=== PATIENT | male | born 1940 | race Caucasian/White ===

== ENCOUNTER → 2020-02-28 | Outpatient (CLI) | payer OTHER ==
[~2020-02-28] MED LIST: CENTRUM SILVER1 EAC7 PO; CITRUCEL500 MG PO; CRESTOR5 MG PO; FISH OIL 1,0001 EAC9 PO; FLOMAX0.4 MG PO; LEVOXYL137 MCG PO; METOPROLOL TART25 MG PO; NASACORT10.8 ML NASAL; NORVASC5 MG PO; TRAZODONE HCL100 MG PO; VALSARTAN-HCTZ1 EAC3 PO; XARELTO20 MG PO; ZYRTEC10 M5 PO
== END ==
LOC: LAB 11:46
PROVIDERS: ATTEND Orthopaedic Surgery
DX: Z01.812 Encounter for preprocedural laboratory examination (principal); Z20.822 Contact with and (suspected) exposure to COVID-19

== ENCOUNTER 2020-03-05 09:04 | Day surgery (SDC) | payer OTHER ==
[2020-02-28 11:05] LABS: URINE BILIRUBIN NEGATIVE (Negative); URINE BLOOD NEGATIVE (Negative); URINE CLARITY CLEAR; URINE COLOR YELLOW; URINE GLUCOSE-RANDOM* NEGATIVE (Negative); URINE KETONES NEGATIVE (Negative); URINE LEUKOCYTES-REFLEX NEGATIVE (Negative); URINE NITRITE-REFLEX NEGATIVE (Negative); URINE PROTEIN (DIPSTICK) NEGATIVE (Negative); URINE UROBILINOGEN 0.2 E.U./dl (0.2-1.0)
[2020-02-28 11:17] LABS: HEMATOCRIT 47.2 % (42.0-52.0); HEMOGLOBIN 16.2 gm/dL (14.0-18.0); MCH 31.3 pg (26.0-34.0); MCHC 34.3 g/dL (28.0-37.0); MCV 91.3 fL (80.0-100.0); RBC 5.17 mil/uL (4.50-6.00); RDW 13.2 % (10.5-14.5); WBC 4.6 thou/uL (4.0-11.0)
[2020-02-28 11:22] LABS: ALBUMIN 3.8 g/dL (3.4-5.0); CALCIUM 8.8 mg/dL (8.5-10.1); CREATININE 1.4 mg/dL (0.7-1.3); INR 1.1
[~2020-03-05] VITALS: Ht 180.3 cm; Wt 119.7 kg
[2020-03-05 11:10] VITALS: BP 130/86
[2020-03-05] MEDS ORDERED: KETOCONAZOLE15 GM TOP (15:55)
[2020-03-05 17:03] VITALS: BP 112/58
--- NOTE | 2020-03-05 18:30 | NUR ---
PT RECEIVED FROM THE REC RM AT 1450 ALERT AND IN NO PAIN. RT KNEE DSNG D&I W/ TEDS/SCDS AND POLAR VERONICA IN PLACE. GOOD CIRC/SENS TO TOES. EATING AND DRINKING WELL. IV FLUIDS INFUSING. VOIDED PER URINAL. NO THERAPY TODAY BUT WILL START IN AM.
[2020-03-05 20:16] VITALS: BP 127/52
[2020-03-06] VITALS (7 sets, daily range): BP systolic 109–125; BP diastolic 55–79
--- NOTE | 2020-03-06 04:25 | NUR ---
RECIEVED CARE OF THIS PATIENT AT 1900. PATIENT ALERT AND ORIENTED X4. ANGIE DRESSING ON R KNEE D/I. C/O MILD PAIN, SCHEDULED PAIN MED GIVEN. PT STOOD UP AT BEDSIDE FOR 40 MIN THEN WALKED TO BATHROOM WITH ASSIST. TEDS AND SCD'S IN PLACE. SLEPT LITTLE THIS SHIFT.
[2020-03-06 05:51] LABS: HEMATOCRIT 40.8 % (42.0-52.0); HEMOGLOBIN 13.5 gm/dL (14.0-18.0); MCH 30.7 pg (26.0-34.0); MCHC 33.2 g/dL (28.0-37.0); MCV 92.4 fL (80.0-100.0); RBC 4.42 mil/uL (4.50-6.00); RDW 13.1 % (10.5-14.5); WBC 11.4 thou/uL (4.0-11.0)
--- NOTE | 2020-03-06 10:08 | NUR ---
ASSESSMENT: CM REVIEWED CHART. PT IS S/P TOTAL KNEE REPLACEMENT. PT REPORTS LIVING IN A HOUSE WITH HIS . PT HAS ABOUT 3 STEPS TO ENTER THE HOME AND NO STEPS HE HAS TO USE INSIDE. PT REPORTS THAT HE IS NORMALLY INDEPENDENT WITH ADLS AND AMBULATION. PT WORKED WITH THERAPY AND IS NEEDING A WALKER FOR HOME. PT REPORTS NO PREFERENCE OF [employer]. CM NOTIFIED [employer] AND THEY ARE BRINGING A WALKER TO PATIENTS ROOM. PT REPORTS HAVING A CPAP MACHINE AT HOME. PT DENIES HAVING ANY NEEDS FROM CM. PLANS ARE TO DISCHARGE HOME TODAY.
--- NOTE | 2020-03-06 10:53 | NUR ---
DISCHARGE PAPERS REVIEWED SIGNED AND COPY IN CHART. IV ACSESS DCD, ALL BELONGINGS PACKED AND SENT WITH PATIENT. TO TAKE PATIENT HOME. RX'S WAS GIVEN PRE OP APPT AND IS FILLING.NO PAIN OR RESP DISTRESS. PATIENT EARLIER WALKED UNIT HALLS AND CLIMBED STAIRS. OK PER PT TO DISCHARGE.
--- NOTE | 2020-03-06 12:48 | O ---
[facility] [place] [address] OPERATIVE REPORT Name: CON CROWE Room #: DEP [facility] John#: [id number] Admission: 03/05/20 Attend Phys: Ralph Madsen MD Discharge: 03/06/20 Date of : 42 Report #: [id number] THIS REPORT FOR: cc: Owen Ansari MD, Steven A. MD Abraham,Ralph Hawthorne MD ~ DATE OF SERVICE: 03/05/2020 PREOPERATIVE DIAGNOSIS: Right knee osteoarthritis. POSTOPERATIVE DIAGNOSIS: Right knee osteoarthritis. PROCEDURE: Right total knee arthroplasty using Navio robotic conventions assistant. SURGEON: Ralph Madsen MD UTILITY REPAIRER: Marni Oliveira PA-C INDICATIONS FOR UTILITY REPAIRER: Throughout the case, extensive retraction and manipulation of the knee was required. This was afforded by my conventions assistant. ANESTHESIA: LMA with an adductor canal block. IMPLANTS: Size 7 Journey II BCS cobalt chrome femur, size 7 tibia, size 9 polyethylene and size 38 patella. TOURNIQUET TIME: 53 minutes. ESTIMATED BLOOD LOSS: 25 mL. COMPLICATIONS: None. SPECIMENS: None. CONDITION UPON LEAVING THE OPERATING ROOM: Stable. INDICATIONS FOR PROCEDURE: The patient is a 80-year-old gentleman with right knee osteoarthritis. He had failed conservative measures for this and after discussion with him, he elected for right total knee arthroplasty. DESCRIPTION OF PROCEDURE: Risks, benefits, alternatives, and complications were discussed in detail with the patient including but not limited to risk of anesthesia, risk of damage to nerves, arteries, blood vessels, risk for infection, bleeding, risk for continued knee pain, need for reoperation. Informed consent was obtained from the patient. The right knee was [facility] [address] [place] [address] OPERATIVE REPORT Name: CON CROWE Room #: DEP [facility] John#: [id number] Admission: 03/05/20 Attend Phys: Ralph Madsen MD Discharge: 03/06/20 Date of : 42 Report #: [id number] appropriately marked in the preoperative holding area. IV Ancef was given for preoperative antibiotics. He was brought to the operating room and placed in supine position on operating room table. LMA anesthesia was induced without complication. Tourniquet was placed on the right thigh. Right lower extremity was prepped and draped in normal sterile fashion. Timeout was performed properly identifying the patient and procedure as well as the instrumentation and implants. All in the operating room were in agreement. Right lower extremity was exsanguinated, tourniquet was inflated. Tourniquet time was 53 minutes. Standard midline approach to knee was made with 10 blade through the skin. Dissection was taken down sharply to the fascia and deep flaps were developed medially and laterally. Fresh 10 blade was used to make a medial parapatellar arthrotomy and the knee was inspected. There was moderate tricompartmental osteoarthritis. ACL and PCL were removed sharply. Reference pins were placed in the femur and the tibia. The knee was then digitally mapped using the [employer] robotic system. Intraoperative plan was made and we sized the size 7 femur with a size 7 tibia and a 10 spacer. After acceptance of the intraoperative plan, the distal femoral cut was made with Navio bur. Distal femoral cutting block was pinned in place and chamfer cuts were made. Attention was then turned to the tibia. Remainder of the menisci removed with Bovie cautery. Tibial resection guide was pinned in place using the Navio for placement and tibial resection was made. Flexion and extension gaps were then checked and found to have good balance in flexion and extension both medially and laterally. The tibia was sized, found to be a size 7. A size 7 tibial trial was placed, pinned and punched. A size 7 femoral trial was placed and box cut was made. This was then trialed with a size 9 polyethylene and size 9 polyethylene demonstrated 1-2 mm of laxity medially and laterally throughout range of motion of the knee. After this, 9 mm of bone was resected from the posterior surface of the patella and a size 38 patellar trial button was placed. Knee was taken through range of motion, found to be stable, found to have good patellar tracking. Trial components were removed. Bony ends were thoroughly irrigated with normal saline. A final size 7 tibia, size 7 Journey II BCS cobalt chrome femur and a size 38 patella were cemented in place using standard cementation techniques. While the cement cured, a periarticular injection consisting of morphine, ropivacaine, epinephrine, Toradol was placed around the knee joint capsule. After the cement cured, tourniquet was deflated. Hemostasis was obtained with Bovie cautery. Final size 9 polyethylene was placed. A gram of vancomycin was placed deep in the joint. Fascia was closed with 0 Vicryl, skin was closed with 2-0 Vicryl, skin staple and a ANGIE dressing was applied. The patient tolerated this procedure well and went to the recovery room under care of anesthesia postoperatively. <ELECTRONICALLY SIGNED> By: Ralph Madsen MD 03/06/20 [id number] Ralph Madsen MD /nt
== END 2020-03-06 11:30 | disposition home or self-care (01) ==
LOC: OR 09:04 → 4S 13:38 → OR 03-06 11:30
PROVIDERS: ATTEND Orthopaedic Surgery
DX: M17.11 Unilateral primary osteoarthritis, right knee (principal); M25.561 Pain in right knee; I10 Essential (primary) hypertension; E03.9 Hypothyroidism, unspecified; E78.00 Pure hypercholesterolemia, unspecified; N40.0 Benign prostatic hyperplasia without lower urinary tract symptoms; G47.30 Sleep apnea, unspecified; Z98.890 Other specified postprocedural states; Z79.899 Other long term (current) drug therapy; Z87.891 Personal history of nicotine dependence; Z88.0 Allergy status to penicillin; Z88.2 Allergy status to sulfonamides
CPT/HCPCS: 10102; 50010; 50101; 50415; 50954; 51130; 51225; 51320; 51412; 52001; 52282; 53000; 53078; 53370; 56527; 56528; 57095; 57103; 57110; 57127; 57180; 62110; 62900; 64039; 70005

== ENCOUNTER → 2020-04-24 | Outpatient (CLI) | payer OTHER ==
[~2020-04-24] MED LIST changes: +KETOCONAZOLE15 GM TOP
== END ==
LOC: HYPER 13:04
PROVIDERS: ATTEND Emergency Medicine
DX: T87.89 Other complications of amputation stump (principal); I87.331 Chronic venous hypertension (idiopathic) with ulcer and inflammation of right lower extremity; L97.812 Non-pressure chronic ulcer of other part of right lower leg with fat layer exposed; S80.821A Blister (nonthermal), right lower leg, initial encounter; R60.0 Localized edema; M17.11 Unilateral primary osteoarthritis, right knee; G47.30 Sleep apnea, unspecified; E66.9 Obesity, unspecified; Z68.37 Body mass index [BMI] 37.0-37.9, adult; Z87.891 Personal history of nicotine dependence; Z79.899 Other long term (current) drug therapy; Z96.651 Presence of right artificial knee joint; Z79.01 Long term (current) use of anticoagulants; X58.XXXA Exposure to other specified factors, initial encounter; Y83.5 Amputation of limb(s) as the cause of abnormal reaction of the patient, or of later complication, without mention of misadventure at the time of the procedure; Y93.89 Activity, other specified; Y92.89 Other specified places as the place of occurrence of the external cause; Y99.8 Other external cause status

== ENCOUNTER → 2020-05-01 | Outpatient (CLI) | payer OTHER | LOC: HYPER 11:10 | PROVIDERS: ATTEND Emergency Medicine | DX: I87.331 Chronic venous hypertension (idiopathic) with ulcer and inflammation of right lower extremity (principal); L97.812 Non-pressure chronic ulcer of other part of right lower leg with fat layer exposed; L97.212 Non-pressure chronic ulcer of right calf with fat layer exposed; S80.821D Blister (nonthermal), right lower leg, subsequent encounter; L84 Corns and callosities; E66.01 Morbid (severe) obesity due to excess calories; R60.0 Localized edema; M17.11 Unilateral primary osteoarthritis, right knee; G47.30 Sleep apnea, unspecified; E66.9 Obesity, unspecified; Z68.37 Body mass index [BMI] 37.0-37.9, adult; Z87.891 Personal history of nicotine dependence; Z79.899 Other long term (current) drug therapy; Z96.651 Presence of right artificial knee joint; Z79.01 Long term (current) use of anticoagulants; X58.XXXD Exposure to other specified factors, subsequent encounter; Y83.5 Amputation of limb(s) as the cause of abnormal reaction of the patient, or of later complication, without mention of misadventure at the time of the procedure ==

== ENCOUNTER → 2020-05-15 | Outpatient (CLI) | payer OTHER | LOC: HYPER 12:42 | PROVIDERS: ATTEND Emergency Medicine | DX: I87.331 Chronic venous hypertension (idiopathic) with ulcer and inflammation of right lower extremity (principal); L97.812 Non-pressure chronic ulcer of other part of right lower leg with fat layer exposed; S80.821D Blister (nonthermal), right lower leg, subsequent encounter; L84 Corns and callosities; R60.0 Localized edema; E66.01 Morbid (severe) obesity due to excess calories; M17.11 Unilateral primary osteoarthritis, right knee; G47.30 Sleep apnea, unspecified; E66.9 Obesity, unspecified; Z68.37 Body mass index [BMI] 37.0-37.9, adult; Z87.891 Personal history of nicotine dependence; Z79.899 Other long term (current) drug therapy; Z96.651 Presence of right artificial knee joint; Z79.01 Long term (current) use of anticoagulants; X58.XXXD Exposure to other specified factors, subsequent encounter ==